=== PATIENT | female | born 1995 | race Caucasian/White ===

== ENCOUNTER 2016-05-28 03:28 | Emergency (ER) | payer BC ==
[~2016-05-28] VITALS: Ht 165.1 cm; Wt 66.0 kg
[2016-05-28 03:33] VITALS: TEMP 36.7; Ht 165.1 cm; Wt 66.0 kg
[2016-05-28] MEDS ORDERED: LIDOCAINE HCL 2% VISC SOLN 20 ML UDC PO STA (03:49)
[2016-05-28] MEDS ORDERED: ALUMINUM/MAGNESIUM SUSP 30 ML UDC PO STA (03:49)
[2016-05-28] MEDS ORDERED: SODIUM CHLORIDE 0.9% 1000ML 1,000 ML IV STA (03:49)
[2016-05-28] MEDS ORDERED: ONDANSETRON INJ 2 MG/ML 2 ML VIAL IV STA (03:49)
[2016-05-28 04:01] LABS: BASO % 0.6 %; BASO ABS # 0.04 K/uL (0-0.2); COMPLETE YES; EOS % 2.1 %; HEMATOCRIT 41.6 % (37-47); IG% 0.2 %; LYMPH % 33.1 %; MEAN CELL VOLUME 88.1 fL (80-100); MEAN CORPUSCULAR HEMOGLOBIN 30.9 pg (25-34); MEAN CORPUSCULAR HGB CONC 35.1 g/dl (32-36); MEAN PLATELET VOLUME 11.5 fL (7.4-10.4); MONO % 7.2 %; NEUT % 56.8 %; PLATELET COUNT 240 K/uL (130-400); RED BLOOD COUNT 4.72 M/uL (4.2-5.4); WHITE BLOOD COUNT 6.64 K/uL (4.8-10.8)
[2016-05-28 04:03] LABS: URINE APPEARANCE CLEAR (CLEAR); URINE BILIRUBIN NEG (NEG); URINE COLOR YELLOW; URINE EPITHELIAL CELL AUTO >30 /lpf (0-5); URINE NITRITE NEG (NEG); URINE SPECIFIC GRAVITY 1.024 (1.000-1.030); UROBILINOGEN NEG (NEG); ZZUR CULT IF INDIC CLEAN CATCH YES
[2016-05-28 04:05] LABS: MANUAL MICROSCOPIC REQUIRED? NO; REVIEW REQ? NO
[2016-05-28] MEDS ORDERED: BCPILLS PO (04:05)
[2016-05-28 04:19] LABS: BUN/CREATININE RATIO 30.4 (10-20); CREATININE 0.92 mg/dl (0.60-1.20); POTASSIUM 3.8 mmol/L (3.5-5.1)
[2016-05-28 04:45] LABS: PREG INTERNAL NEGATIVE QC NEG CLEAR BACKGROUND; PREG INTERNAL POSITIVE QC POS CONTROL LINE
[2016-05-28 05:27] VITALS: BP 122/68; PULSE 74; O2SAT 97
--- NOTE | 2016-05-28 05:36 | EMERGENCY ROOM VISIT NOTE ---
History First contact with patient: 03:41 Chief Complaint: ABDOMINAL PAIN Stated Complaint: ABD PAIN Nursing Triage Summary: patient c/o lower abdominal pain/cramping that began this morning when she woke up. states she ate salmon before bed but no one else in house was sick. denies any n/v. History of Present Illness The patient is a 21 year old female who presents to the Emergency Room with complaints of sudden onset of epigastric right upper quadrant pain since 2:30 this morning that woke her up out of sleep. Patient had salmon, broccoli and rice for dinner. She then had some chips. No one else is sick. Patient denies chest pain, dyspnea, fever, chills, diarrhea, back pain, urinary symptoms. She describes pain as aching, ranging in severity 6 out of 10. Nothing makes it better or worse. It does not radiate. Review of Systems See HPI for pertinent positives & negatives. A total of 10 systems reviewed and were otherwise negative. Past Medical/Surgical History none Social History Smoking Status: Never Smoker Smokeless Tobacco Use: No Alcohol Use: occasionally Drug Use: none Occupation Status: [employer] student Current/Historical Medications Scheduled Control Pills ( Control Pills), 1 TAB PO DAILY Allergies Coded Allergies: No Known Allergies (Unverified , 05/28/16) Physical Exam Vital Signs Date Time Temp Pulse Resp B/P Pulse Ox O2 Delivery O2 Flow Rate FiO2 05/28/16 05:27 74 16 122/68 97 Room Air 05/28/16 03:33 36.7 99 16 124/78 96 Room Air Physical Exam VITALS: Vitals are noted on the nurse's note and reviewed by myself. Vital signs stable. GENERAL: Pleasant female, in no acute distress, nondiaphoretic, well-developed well-nourished. SKIN: The skin was without rashes, erythema, edema, or bruising. There is no tenting of the skin. Capillary reflex less than 2 seconds. HEAD: Normocephalic atraumatic. EARS: External auditory canals clear, tympanic membranes pearly sadler without erythema or effusion bilaterally. EYES: Pupils equal round and reactive to light and accommodation. Conjunctivae without injection, sclerae without icterus. Extraocular movements intact. NOSE: Patent, turbinates without inflammation or discharge. MOUTH: Mucous membranes moist. Pharynx without erythema or exudate. Uvula midline. Airway patent. Tongue does not deviate. NECK: Supple without nuchal rigidity. No lymphadenopathy. No thyromegaly. Cervical spine is nontender. No JVD. HEART: Regular rate and rhythm without murmurs gallops or rubs. LUNGS: Clear to auscultation bilaterally without wheezes, rales or rhonchi. No dullness to percussion. No retractions or accessory muscle use. ABDOMEN: Positive bowel sounds x 4. Normal tympanic percussion. Soft, tender to palpation epigastric right upper quadrant, no CVA tenderness, without masses or organomegaly. Lopez sign negative. No guarding or rebound tenderness. MUSCULOSKELETAL: No muscle atrophy, erythema, or edema noted. NEURO: Patient was alert and oriented to person place and time. Normal sensation to light and sharp touch. No focal neurological deficits. Medical Decision & Procedures Laboratory Results 05/28/16 03:45 Red Blood Count 4.72, Mean Corpuscular Volume 88.1, Mean Corpuscular Hemoglobin 30.9, Mean Corpuscular Hemoglobin Concent 35.1, Mean Platelet Volume 11.5, Neutrophils (%) (Auto) 56.8, Lymphocytes (%) (Auto) 33.1, Monocytes (%) (Auto) 7.2, Eosinophils (%) (Auto) 2.1, Basophils (%) (Auto) 0.6, Neutrophils # (Auto) 3.77, Lymphocytes # (Auto) 2.20, Monocytes # (Auto) 0.48, Eosinophils # (Auto) 0.14, Basophils # (Auto) 0.04 05/28/16 03:45 Test 05/28/16 03:40 05/28/16 03:45 Urine Color YELLOW Urine Appearance CLEAR (CLEAR) Urine pH 6.0 (4.5-7.5) Urine Specific [place] 1.024 (1.000-1.030) Urine Protein NEG (NEG) Urine Glucose (UA) NEG (NEG) Urine Ketones NEG (NEG) Urine Occult Blood 1+ (NEG) Urine Nitrite NEG (NEG) Urine Bilirubin NEG (NEG) Urine Urobilinogen NEG (NEG) Urine Leukocyte Esterase MODERATE (NEG) Urine WBC (Auto) 10-30 /hpf (0-5) Urine RBC (Auto) 0-4 /hpf (0-4) Urine Hyaline Casts (Auto) 1-5 /lpf (0-5) Urine Epithelial Cells (Auto) >30 /lpf (0-5) Urine Bacteria (Auto) 2+ (NEG) White Blood Count 6.64 K/uL (4.8-10.8) Red Blood Count 4.72 M/uL (4.2-5.4) Hemoglobin 14.6 g/dL (12.0-16.0) Hematocrit 41.6 % (37-47) Mean Corpuscular Volume 88.1 fL (80-100) Mean Corpuscular Hemoglobin 30.9 pg (25-34) Mean Corpuscular Hemoglobin Concent 35.1 g/dl (32-36) Platelet Count 240 K/uL (130-400) Mean Platelet Volume 11.5 fL (7.4-10.4) Neutrophils (%) (Auto) 56.8 % Lymphocytes (%) (Auto) 33.1 % Monocytes (%) (Auto) 7.2 % Eosinophils (%) (Auto) 2.1 % Basophils (%) (Auto) 0.6 % Neutrophils # (Auto) 3.77 K/uL (1.4-6.5) Lymphocytes # (Auto) 2.20 K/uL (1.2-3.4) Monocytes # (Auto) 0.48 K/uL (0.11-0.59) Eosinophils # (Auto) 0.14 K/uL (0-0.5) Basophils # (Auto) 0.04 K/uL (0-0.2) RDW Standard Deviation 40.4 fL (36.4-46.3) RDW Coefficient of Variation 12.6 % (11.5-14.5) Immature Granulocyte % (Auto) 0.2 % Immature Granulocyte # (Auto) 0.01 K/uL (0.00-0.02) Anion Gap 12.0 mmol/L (3-11) Est Creatinine Clear Calc Drug Dose 87.0 ml/min Estimated GFR () 103.2 Estimated GFR (Non- 89.0 BUN/Creatinine Ratio 30.4 (10-20) Calcium Level 9.0 mg/dl (8.5-10.1) Total Bilirubin 0.3 mg/dl (0.2-1) Direct Bilirubin 0.1 mg/dl (0-0.2) Aspartate Amino Transf (AST/SGOT) 24 U/L (15-37) Alanine Aminotransferase (ALT/SGPT) 28 U/L (12-78) Alkaline Phosphatase 57 U/L (45-117) Total Protein 8.1 gm/dl (6.4-8.2) Albumin 4.2 gm/dl (3.4-5.0) Lipase 201 U/L (73-393) Human Chorionic Gonadotropin, Qual NEG (NEG) Medications Administered Medications (Trade) Dose Ordered Sig/Melvi Route Start Time Stop Time Status Last Admin Dose Admin Lidocaine HCl (Viscous Lidocaine 2% Soln) 10 ml NOW STAT PO 05/28/16 03:49 05/28/16 03:51 DC 05/28/16 04:00 10 ML Al Hydroxide/Mg Hydroxide 30 ml 30 ml NOW STAT PO 05/28/16 03:49 05/28/16 03:51 DC 05/28/16 04:00 30 ML Sodium Chloride (Nss 1000ml) 1,000 ml @ 999 mls/hr Q1H1M STAT IV 05/28/16 03:49 05/28/16 04:49 DC 05/28/16 04:00 999 MLS/HR Ondansetron HCl (Zofran Inj) 4 mg NOW STAT IV 05/28/16 03:49 05/28/16 03:51 DC 05/28/16 03:59 4 MG ED Course Prior records/ancillary studies reviewed. Triage Nursing notes reviewed. The patient's history was concerning for abdominal pain. Differential diagnosis: Etiologies such as appendicitis, diverticulitis, PUD, biliary pathology, UTI, pancreatitis, obstruction, mesenteric ischemia, aortic pathology, infections, inflammatory bowel disease, renal colic, as well as others were entertained. Physical examination findings: As above. ER treatment provided: GI cocktail, Zofran On reassessment the patient felt better. Diagnostics interpreted by me: The labs revealed no leukocytosis. Negative hCG. Urine seems consistent with contamination sent for culture Imaging studies: US RUQ: No gallstones. No wall thickening or pericholecystic fluid. Normal caliber common duct. Mild prominence of the right renal pelvis. If there is right flank pain, recommend correlation with CT exam to evaluate for obstruction. Remainder unremarkable. Radiologist: Bebo Wilhelm M.D. Exam and history seem consistent with epigastric discomfort that was resolved after GI cocktail. Patient felt 100%. She was asymptomatic. She requested relief. She was tolerating fluids. Patient denies any urinary symptoms and had no CVA tenderness or back pain on exam. I informed her of this ultrasound findings and states she has no urinary symptoms and is agreeable to wait for urine culture results if she needs antibiotics. She was advised to rest, stay well-hydrated, avoid heavy meals before dinner and to follow-up with health services in a day or 2 or here in the ER sooner for abdominal pain, fevers, vomiting, worsening signs or symptoms or as needed. By the evaluation outlined above emergent etiologies such as appendicitis, diverticulitis, PUD, biliary pathology, UTI, pancreatitis, obstruction, mesenteric ischemia, aortic pathology, infections, inflammatory bowel disease, renal colic, as well as others were deemed relatively unlikely. The pt informed about the findings as listed above. All questions were answered and pleased with the treatment. Return instructions were outlined and the patient was discharged in stable condition. Referral: The patient was referred back to their primary care physician/health services for follow-up in 2 to 3 days for a recheck of the current condition. Case reviewed by attending Medical Decision As above Impression Primary Impression: Abdominal discomfort, epigastric Departure Information Dispostion Home / Self-Care Condition GOOD Referrals No Doctor, Assigned (PCP) Patient Instructions My [facility] Additional Instructions Ibuprofen(Motrin, Advil) may be used for fever or pain. Use 600mg every six hours as needed. Take with food. Avoid using more than 2400mg in a 24 hour period. Do not use 2400mg per day for more than three consecutive days without physician direction. Prolonged inappropriate use can lead to stomach upset or ulcers. (AND/OR) Acetaminophen(Tylenol) may be used for fever or pain. Use 1000mg every six hours as needed. Avoid using more than 3000mg in a 24 hour period. Rest and drink plenty of fluids as tolerated. Continue current medications. Return to the ER immediately for worsening or persistent abdominal pain, urinary symptoms, back pain, vomiting, fevers, chest pains, difficulty breathing , worsening of your condition, or as needed. Follow up with your primary physician/health services in 2-3 days for a recheck of your current condition.
--- NOTE | 2016-05-28 07:49 | DIAGNOSTIC IMAGING REPORT ---
ABDOMINAL ULTRASOUND, RIGHT UPPER QUADRANT HISTORY: Right upper quadrant abdominal pain. COMPARISON: None. FINDINGS: The liver is sonographically normal. There is no biliary ductal dilatation. The gallbladder is normal. There are no gallstones. The pancreas is sonographically normal. There is slight prominence of the right collecting system. IMPRESSION: 1. No gallstones or biliary ductal dilatation. 2. Slight prominence of the right renal pelvis without hydronephrosis. Electronically signed by: Venancio Hernandez M.D. 05/28/2016 7:48 AM Dictated Date/Time: 05/28/2016 7:47 AM
== END 2016-05-28 05:45 | disposition home or self-care (01) ==
LOC: C.EDB 03:30 → C.EDA 05:45
DX: R10.13 Epigastric pain (principal)